=== PATIENT | male | born 1945 | race Caucasian/White ===

== ENCOUNTER → 2024-06-16 11:48 | Outpatient (CLI) | payer MEDICARE, OTHER, SELFPAY ==
--- NOTE | 2024-06-16 11:51 | DI.RAD.S_ITS ---
PROCEDURE: XR ELBOW RT MIN 3V INDICATIONS: pain/redness/swelling/hot, fall last week w/ scabbing TECHNIQUE: 3 views of the elbow were acquired. COMPARISON: None. FINDINGS: Bones: Alignment is normal. On the AP view soft tissue calcification is seen near the lateral upper and there is slight cortical irregularity in this region. This is probably related to soft tissue injury in the past related to overlying soft tissue calcification. No displaced fractures are evident. Joint spaces appear maintained. . . Soft tissues: There is considerable soft tissue swelling over the olecranon and proximal forearm. No radiopaque foreign bodies are evident. There is no subcutaneous emphysema. IMPRESSION: Soft tissue swelling of the elbow and proximal forearm. Mild irregularity along the lateral epicondyle. If fracture in this region is suspect, further evaluation with CT scanning would be beneficial. Dictated by: Clinton Meredith M.D. on 06/16/2024 at 16:19 Approved by: Clinton Meredith M.D. on 06/16/2024 at 16:27
== END ==
PROVIDERS: PCP Internal Medicine; Referring Provider Physician Assistant; Visit Provider Physician Assistant
DX: M70.21 Olecranon bursitis, right elbow (principal); M79.89 Other specified soft tissue disorders
CPT/HCPCS: 73080

== ENCOUNTER 2024-06-18 14:52 | Emergency (ER) | payer MEDICARE, OTHER, SELFPAY ==
[2024-06-18 14:54] VITALS: BP 170/87; PULSE 87; RESP 17; TEMP 36.9; O2SAT 97; BMI 21.9
--- NOTE | 2024-06-18 16:10 | ED.RECABL ---
HPI - Recheck/Abnormal Lab/Rx General Chief Complaint: Recheck/Abnormal Lab/Rx Stated Complaint: Right Elbow pain Time Seen by Provider: 06/18/24 15:56 Source: patient Mode of arrival: Ambulatory History of Present Illness HPI narrative: 78-year-old male who is here for evaluation of a recheck of a potential infection to his right elbow. Several days ago he sustained an injury when he was pulled forward while walking his dog. Sustained an abrasion to his right elbow. He was seen at the walk-in clinic. Was started on Keflex and doxycycline. He had an x-ray. Was told that the x-ray is unremarkable. He stated that a CT scan was ordered as an outpatient. He had the CT scan performed earlier today. He has been taking the antibiotics as directed. Has had a full 2 days of the antibiotics. He feels like the redness and swelling of the elbow has actually improved somewhat but now he was getting some swelling to his forearm and he was concerned that maybe this means that the infection was worsening. He states that overall he feels well. He can bend his elbow without much discomfort. Related Data Home Medications Medication Instructions Recorded Confirmed albuterol sulfate 90 mcg/actuation 1 inhalation inhalation Q4-6H PRN 08/03/20 06/16/24 aerosol inhaler shortness of breath or wheezing Previous Rx's Medication Instructions Recorded fluticasone propionate 50 2 spray intranasal BEDTIME #16 09/05/21 mcg/actuation nasal grams spray,suspension cephalexin 500 mg capsule 500 mg PO QID #20 caps 06/16/24 doxycycline hyclate 100 mg tablet 100 mg PO BID #20 tabs 06/16/24 Allergies Allergy/AdvReac Type Severity Reaction Status Date / Time No Known Drug Allergies Allergy Verified 06/18/24 14:54 Review of Systems Constitutional Constitutional: Reports system reviewed and no additional complaints, except as documented Musculoskeletal Musculoskeletal: Reports system reviewed and no additional complaints, except as documented Integumentary/Breasts Skin/Breast: Reports system reviewed and no additional complaints, except as documented Neurologic Neurologic: Reports system reviewed and no additional complaints, except as documented Patient History Medical History Asthma Carpal tunnel syndrome Hearing loss Cataracts, bilateral Skin cancer Surgical History Anesthesia History of hernia surgery (~1989) Family History Father Prostate cancer Mini stroke Mother History of heart disease Social History Smoking Status: Never smoker Smoking Status: Never smoker Substance Use Type: does not use Exam Initial Vital Signs Initial Vital Signs: Vital Signs Temperature 98.4 F 06/18/24 14:54 Pulse Rate 87 06/18/24 14:54 Respiratory Rate 17 06/18/24 14:54 Blood Pressure 170/87 H 06/18/24 14:54 Pulse Oximetry 97 06/18/24 14:54 Oxygen Delivery Method Room Air 06/18/24 14:54 Const General: cooperative, comfortable and No ill appearing Skin Other: Patient has what appears to be a healing superficial abrasion to the posterior aspect over the olecranon of the right elbow. There is surrounding erythema. He was swelling to the area of the olecranon and the posterior aspect of the right elbow. No pustules noted. No vesicles noted. Also has swelling to the volar aspect of the right forearm. Neuro General: patient alert, patient awake and moves all extremities Extrem Other: Patient does have full range of motion to the right elbow. Has swelling along the olecranon of the right elbow and also along the ulnar/volar aspect of the right forearm. Right wrist is unremarkable. Right shoulder is unremarkable. Course Vital Signs Vital signs: Vital Signs - 8 hr 06/18/24 14:54 Temperature 98.4 F Pulse Rate 87 Respiratory Rate 17 Blood Pressure 170/87 H Pulse Oximetry 97 Oxygen Delivery Method Room Air MDM - Recheck/Abnormal Lab/Rx MDM Narrative Medical decision making narrative: Patient is on both Keflex and doxycycline. He has had 2 full days of the antibiotics and a partial day. He states that there are some symptoms that seemed to be improving but is also having swelling now in his forearm. Overall he appears well. He was full range motion of his right elbow. I have low suspicion for septic joint. I had a long discussion with him regarding the symptoms. Informed him that this could potentially go either direction and that he could potentially be failing the oral outpatient antibiotics or it could be that he was just not been on the antibiotics long enough to see improvement. Informed him that we do expect to see some worsening of the redness during this period of transition for the antibiotics are working. We discussed the possibility of admission to the hospital for IV antibiotics versus being discharged home for the next 24-48 hours and if his symptoms continue to worsen that he will need to return to the emergency department for admission. After this discussion he opted to be discharged home. Feel that this is the reasonable course of action. He was given strict return precautions and follow-up instructions. He expressed understanding and agreement with plan. Discharge Plan Departure Patient Disposition: Home Clinical Impression: Cellulitis Activity Restrictions/Additional Instructions: I would recommend that you continue to take the antibiotics as directed. We will no within the next 24-48 hours whether or not the antibiotics are not working. If you start to feel worse such as fevers or generally not feeling well or of the redness and swelling or worsen please return to the emergency department for further evaluation. Prescriptions: No Action cephalexin 500 mg capsule 500 mg PO QID Qty: 20 0RF doxycycline hyclate 100 mg tablet 100 mg PO BID Qty: 20 0RF fluticasone propionate 50 mcg/actuation spray,suspension 2 spray intranasal BEDTIME Qty: 16 1RF Rx Instructions: administer into each nostril/ PT WILL NEED TO BE SEEN BEFORE NEXT FILL 09/05/21 albuterol sulfate 90 mcg/actuation HFA aerosol inhaler 1 inhalation INHALATION Q4-6H PRN (Reason: shortness of breath or wheezing) Rx Instructions: Only uses when Asthma gets bad. Referrals: Isak Stern MD [Primary Care Provider] - Stand Alone Forms: Patient Portal/API
== END 2024-06-18 16:16 | disposition home or self-care (01) ==
PROVIDERS: Emergency Provider Emergency Medicine; PCP Internal Medicine
DX: L03.113 Cellulitis of right upper limb (principal)
CPT/HCPCS: 73200; 99281